=== PATIENT | male | born 1945 | race Hispanic/Latino ===

== ENCOUNTER 2016-10-10 06:58 | Day surgery (SDC) | payer MEDICARE ==
[2015-09-07 10:47] VITALS: PULSE 76
[2016-09-20 10:55] VITALS: BMI 27.9
[2016-10-10 07:58] VITALS: RESP 20
[2016-10-10] MEDS ORDERED: cefTRIAXone (Rocephin) 1 gm Inj ONE (08:02)
[2016-10-10] MEDS ORDERED: Gentamicin 80 mg/2mL Inj. ONE (08:33)
[2016-10-10] MEDS ORDERED: Oxycodone/Acetaminophen 5/325 mg Tab PO PRN (08:45)
[2016-10-10] MEDS ORDERED: Propofol 10 mg/ml Inj (20 ML) ONE (08:50)
[2016-10-10] MEDS ORDERED: Lactated Ringer's 1,000 ML IV SCH (09:15)
--- NOTE | 2016-10-10 10:21 | HP ---
REASON FOR ADMISSION: Workup of elevated PSA. The patient is a very pleasant gentleman. He is 71 years old. He has multiple medical history. He has a history of bypass surgery. He has an elevated PSA. We discussed options including observation , including repeat PSAs, etc. After discussing all the various options, the patient is here today fo r a prostate ultrasound and biopsy. Risks and benefits have been discussed with him at length. He is here now for further plans. PAST MEDICAL AND SURGICAL HISTORY: As listed. A patient of Dr. Montgomery, who the patient also saw in carrier clinic. MEDICATIONS: See the list on the chart. He stopped Plavix a while ago, when he had his "double rupal ias fixed". The remainder are listed on the chart. REVIEW OF SYSTEMS: No weight loss, chest pain, shortness of breath. SOCIAL HISTORY: He is here with his daughter. The remainder of the social history is otherwise unremarkable. PHYSICAL EXAMINATION: GENERAL: A well-nourished male, in no apparent distress. VITAL SIGNS: Within normal limits, included in the chart. LUNGS: Clear. HEART: S1, S2. ABDOMEN: Overall soft, nontender. No flank mass appreciated. GENITALIA: Normal male phallus. DIAGNOSES: Elevated PSA, voiding dysfunction, nocturia. PLAN: An ultrasound of the prostate, ultrasound-guided prostate biopsy, antibiotic prophylaxis and t hen further plans will follow depending on what we find. Risks and benefits discussed with the patient at length and daughter as well. Further plans will follow. He will also be discharged home on antibiotics and analgesics. De Knight MD cc: [id number] TT: 10/10/2016 10:20:22 en
[2016-10-10 10:22] VITALS: TEMP 97.8
--- NOTE | 2016-10-10 10:46 | OP ---
PROCEDURE DATE: 10/10/2016 PREOPERATIVE DIAGNOSES: Elevated PSA, voiding dysfunction, nocturia. POSTOPERATIVE DIAGNOSES: Elevated PSA, voiding dysfunction, nocturia. PROCEDURE: Ultrasound of the prostate and ultrasound-guided prostate biopsy. SURGEON: Dr. De Knight. COMPLICATIONS: There were no complications. PROCEDURES: An ultrasound of the prostate and ultrasound-guided prostate biopsy. There were no comp lications. INDICATIONS: See history and physical for the details. A very pleasant gentleman here for the above procedure. PROCEDURE: After obtaining informed consent, the patient placed on the table, routine monitors place d, timeouts were called to confirm the patient and positioning. We took pictures, transverse and longitudinal views. The monitor for the sizing was not able to prin t up the size, but guessing it was probably about an 80 mL prostate. We did not see any specific hypoechoic lesions. We began our random biopsies in , left base, left mid, left apex, right base, right mid, right apex. There are multiple pictures taken and saved and placed on the chart for further use. There are no specific hypoechoic lesions. We did sextant biopsies, returned them in 2 containers, left and right for nursing reasons, but we ba sically did 2 at each regional spot, left base, left mid and left apex, right base, right mid and rig ht apex with medial and lateral. A total of 12 core biopsies were sent. The patient tolerated procedure well without complication. De Knight MD cc: [id number] TT: 10/10/2016 10:45:43 an
[2016-10-10 10:47] VITALS: BP 137/73; PULSE 67; O2SAT 95
== END 2016-10-10 11:30 | disposition home or self-care (01) ==
LOC: SDS 06:58
PROVIDERS: ATTEND Urology
DX: R97.20 Elevated prostate specific antigen [PSA] (principal); R35.1 Nocturia; N41.9 Inflammatory disease of prostate, unspecified
CPT/HCPCS: 55700; 82948; 88305; J0696; J1580; J2704; J7120

== ENCOUNTER 2017-08-26 17:11 | Observation (INO) | payer MEDICARE ==
[2017-08-26 17:12] VITALS: BMI 27.9
--- NOTE | 2017-08-26 17:34 | ED PDOC ---
Arrival/HPI - General Chief Complaint: Cough, Cold, Congestion Time Seen by Provider: 08/26/17 17:23 Historian: Patient - History of Present Illness Narrative History of Present Illness (Text): 08/26/17 17:31 Catrachito Cai is a 72 year old male, whose past medical history includes diabetes, hypertension, CVA, CABG, and a mitral valve replacement in 2009, who presents to the emergency department complaining of shortness of breatand mild non-productive cough since last night. Patient denies any congestion, URI, fever , chills, chest pain, or any other complaints at this time. Patient endorses that he is not a smoker or a drinker. Time/Duration: 24 hours Symptom Onset: Gradual Symptom Course: Unchanged Activities at Onset: Light Context: Home Associated Symptoms (Text): 08/26/17 18:57 Patient complains of intermittent shortness of breath with a very mild nonproductive cough since last night. No chest pain. No fever or chills. No URI symptoms. No injury or trauma. Patient is concerned as he has had a mitral valve replacement and multivessel CABG. Past Medical History - Provider Review Nursing Documentation Reviewed: Yes - Infectious Disease Hx of Infectious Diseases: None - Tetanus Immunization Tetanus Immunization: Unknown - Cardiac Hx ID: Yes Hx Hypertension: Yes Other/Comment: open heart - Pulmonary Other/Comment: OPEN HEART - Neurological HX Cerebrovascular Accident: Yes - HEENT Hx HEENT Disorder: Yes (USING GLASSES) - Endocrine/Metabolic Hx Endocrine Disorders: Yes Hx Diabetes Mellitus Type 2: Yes - Hematological/Oncological Hx Blood Transfusions: No Hx Blood Transfusion Reaction: No - Musculoskeletal/Rheumatological Hx Musculoskeletal Disorders: No - Gastrointestinal Other/Comment: r and l inguinal hernias pt is sched for sx 09/06/15 - Psychiatric Hx Substance Use: No - Surgical History Hx Open Heart Surgery: Yes - Anesthesia Hx Anesthesia Reactions: No Hx Malignant Hyperthermia: No - Suicidal Assessment Feels Threatened In Home Enviroment: No Family/Social History - Physician Review Nursing Documentation Reviewed: Yes Family/Social History: No Known Family HX Smoking Status: Former Smoker Hx Alcohol Use: No Hx Substance Use: No Hx Substance Use Treatment: No Allergies/Home Meds Allergies/Adverse Reactions: Allergies No Known Allergies Allergy (Verified 08/26/17 17:23) Home Medications: Home Meds Medication Instructions Recorded Confirmed Insulin Glargine,Hum.rec.anlog 60 units SUBCON ACBD 07/22/15 10/10/16 [Lantus] Aspirin [Ecotrin] 81 mg PO DAILY 09/01/15 10/10/16 Atorvastatin [Lipitor] 40 mg PO DAILY 09/01/15 10/10/16 Cholecalciferol (Vitamin D3) 50,000 unit PO Q2XW 09/01/15 10/10/16 [Vitamin D3] Clopidogrel [Plavix] 75 mg PO DAILY 09/01/15 09/20/16 Furosemide [Lasix] 40 mg PO BID 09/01/15 10/10/16 Carvedilol [Coreg] 3.125 mg PO Q12 09/02/15 10/10/16 Digoxin [Digitek] 0.125 mg PO DAILY 09/02/15 10/10/16 Dutasteride/Tamsulosin HCl [Keren 1 cap PO DAILY 09/02/15 10/10/16 0.5-0.4 mg Capsule] Folic Acid 1 mg PO BID 09/02/15 09/06/15 Magnesium Oxide [Mag-Ox] 400 mg PO BID 09/02/15 10/10/16 Sitagliptin Phos/Metformin HCl 1 cap PO BID 09/02/15 10/10/16 [Janumet 50-1,000 mg Tablet] Insulin Aspart, Recombinant 10 unit SC ACTID 09/20/16 10/10/16 [Novolog] Review of Systems - Physician Review All systems were reviewed & negative as marked: Yes - Review of Systems Constitutional: absent: Fatigue, Fevers, Night Sweats Eyes: absent: Vision Changes ENT: absent: Hearing Changes Respiratory: SOB, Cough. absent: Sputum, Wheezing Cardiovascular: absent: Chest Pain, Palpitations, Syncope Gastrointestinal: absent: Abdominal Pain, Nausea, Vomiting Genitourinary Male: absent: Dysuria, Frequency Musculoskeletal: absent: Arthralgias, Back Pain Skin: absent: Rash, Pruritis Neurological: absent: Headache Endocrine: absent: Diaphoresis Hemo/Lymphatic: absent: Adenopathy Psychiatric: absent: Anxiety, Depression Physical Exam Vital Signs Reviewed: Yes Vital Signs Temp Pulse Resp BP Pulse Ox 08/26/17 17:30 71 19 170/98 H 96 08/26/17 17:20 97.5 F L 74 18 187/100 H 96 Blood Pressure: Hypertensive Pulse: Regular Respiratory Rate: Normal Appearance: Positive for: Well-Appearing, Non-Toxic, Comfortable Pain Distress: None Mental Status: Positive for: Alert and Oriented X 3 - Systems Exam Head: Present: Atraumatic, Normocephalic Pupils: Present: PERRL Extroacular Muscles: Present: EOMI Conjunctiva: Present: Normal Ears: Present: NORMAL TM, Normal Canal. No: Erythema Mouth: Present: Moist Mucous Membranes Pharnyx: No: ERYTHEMA, EXUDATE, TONSILS ENLARGED Neck: Present: Normal Range of Motion Respiratory/Chest: Present: Clear to Auscultation, Good Air Exchange, Decreased Breath Sounds. No: Respiratory Distress, Accessory Muscle Use, Wheezes, Rales, Retracting, Rhonchi, Tachypneic, Tender to Palpation Cardiovascular: Present: Regular Rate and Rhythm, Normal S1, S2. No: Murmurs Abdomen: Present: Normal Bowel Sounds. No: Tenderness, Distention, Peritoneal Signs Back: Present: Normal Inspection Upper Extremity: Present: Normal Inspection. No: Cyanosis, Edema Lower Extremity: Present: Normal Inspection. No: Edema Neurological: Present: GCS=15, CN II-XII Intact, Speech Normal, Motor Func Grossly Intact Skin: Present: Warm, Dry, Normal Color. No: Rashes Psychiatric: Present: Alert, Oriented x 3, Normal Insight, Normal Concentration Medical Decision Making ED Course and Treatment: 08/26/17 17:34 Impression: 72 year old male complaining of shortness of breath and mild non-productive cough since last night. Plan: -- EKG -- Chest X-ray -- Labs -- Reassess and disposition Prior Visits: Notes and results from previous visits were reviewed. Patient was last seen in the emergency department on 09/02/15 for dilpopia of both eyes since waking up. Patient was admitted to hospitalist care for further evaluation. Progress Notes: 08/26/17 18:58 EKG shows normal sinus rhythm rate approximately 70 with a primary AV block and nonspecific ST and T-wave changes with no old available for comparison 08/26/17 19:18 Discussed with who will place on telemetry observation and also with the medical research tech. - Lab Interpretations Lab Results: 08/26/17 17:42 08/26/17 17:42 Lab Results 08/26/17 17:42: Influenza Typ A,B (EIA) Negative for flu a/b 08/26/17 17:42: Sodium 143, Potassium 4.5, Chloride 101, Carbon Dioxide 28, Anion Gap 19, BUN 19, Creatinine 1.2, Est GFR ( Amer) > 60, Est GFR (Non- Af Amer) 60, Random Glucose 126 H, Calcium 10.5, Total Bilirubin 0.9, AST 54, ALT 66 H, Alkaline Phosphatase 90, Lactate Dehydrogenase 690, Total Creatine Kinase 84, Troponin I 0.08 D, NT-Pro-B Natriuret Pep 875 H, Total Protein 8.3, Albumin 4.4, Globulin 3.9, Albumin/Globulin Ratio 1.1 08/26/17 17:42: PT 13.0 H, INR 1.14 H, APTT 30.5, D-Dimer, Quantitative 220 08/26/17 17:42: WBC 11.5 H, RBC 5.23, Hgb 15.0, Hct 45.2, MCV 86.4, MCH 28.7, MCHC 33.2, RDW 14.3, Plt Count 228, MPV 10.7, Gran % 72.7 H, Lymph % (Auto) 12.9 L, [place] % (Auto) 11.9 H, Eos % (Auto) 2.3, Baso % (Auto) 0.2, Gran # 8.39 H , Lymph # (Auto) 1.5, [place]kinson # (Auto) 1.4 H, Eos # (Auto) 0.3, Baso # (Auto) 0.02 I have reviewed the lab results: Yes - RAD Interpretation Radiology Orders: 08/26/17 17:31 CHEST PORTABLE [RAD] Stat Chest 1 view shows hardware with no infiltrate or effusion or cardiomegaly. Graphite Pan Drier Tender: ED Physician - Medication Orders Current Medication Orders: Aspirin (Ecotrin) 81 mg PO DAILY PAO Atorvastatin Calcium (Lipitor) 40 mg PO DAILY PAO Carvedilol (Coreg) 3.125 mg PO Q12 PAO Clopidogrel Bisulfate (Plavix) 75 mg PO DAILY PAO Digoxin (Lanoxin) 0.125 mg PO 1400 PAO Ergocalciferol (Drisdol 50,000 Intl Units Cap) 1 cap PO TuFr@1000 PAO Folic Acid (Folic Acid) 1 mg PO BID PAO Insulin Human Lispro (Humalog) 10 units SC AC PAO Losartan Potassium (Cozaar) 25 mg PO DAILY PAO Magnesium Oxide (Mag-Ox) 400 mg PO BID PAO Non-Formulary Medication (Dutasteride/Tamsulosin Hcl [Keren 0.5-0.4 Mg Capsule] ) 1 cap PO DAILY PAO Non-Formulary Medication (Insulin Glargine,Hum.Rec.Anlog [Lantus]) 60 units SUBCON ACBD PAO Potassium Chloride (K-Dur 20 Meq Er Tab) 20 meq PO BRK PAO Discontinued Medications Furosemide (Lasix) 40 mg IVP ONCE ONE Stop: 08/26/17 19:13 - Scribe Statement The provider has reviewed the documentation as recorded by the Raya Elam Provider Scribe Attestation: All medical record entries made by the Scribe were at my direction and personally dictated by me. I have reviewed the chart and agree that the record accurately reflects my personal performance of the history, physical exam, medical decision making, and the department course for this patient. I have also personally directed, reviewed, and agree with the discharge instructions and disposition. Disposition/Present on Arrival - Present on Arrival Any Indicators Present on Arrival: No History of DVT/PE: No History of Uncontrolled Diabetes: No Urinary Catheter: No History of Decub. Ulcer: No History Surgical Site Infection Following: None - Disposition Have Diagnosis and Disposition been Completed?: Yes Diagnosis: Dyspnea, Elevated brain natriuretic peptide (BNP) level, Hypertension, Elevated troponin Disposition: HOSPITALIZED Disposition Time: 19:19 Patient Plan: Observation, Telemetry Condition: GOOD Referrals: Ortiz Terry MD [Primary Care Provider] - Follow up with primary Forms: [employer] ([place])
[2017-08-26 18:12] LABS: BASO # 0.02 K/mm3 (0.0-2.0); BASO % 0.2 % (0.0-3.0); EOS # 0.3 (0.0-0.7); EOS % 2.3 % (1.5-5.0); GRAN # 8.39 (1.4-6.5); GRAN % 72.7 % (50.0-68.0); LYMPH # 1.5 (1.2-3.4); LYMPH % 12.9 % (22.0-35.0); MEAN CELL VOLUME 86.4 fl (80.0-105.0); MEAN CORPUSCULAR HEMOGLOBIN 28.7 pg (25.0-35.0); MEAN CORPUSCULAR HGB CONC 33.2 g/dl (31.0-37.0); MEAN PLATELET VOLUME 10.7 fl (7.0-11.0); MONO # 1.4 (0.1-0.6); MONO % 11.9 % (1.0-6.0); RBC 5.23 10^6/uL (3.5-6.1); RED CELL DISTRIBUTION WIDTH 14.3 % (11.5-14.5); WHITE BLOOD COUNT 11.5 10^3/ul (4.5-11.0)
[2017-08-26 18:14] LABS: ALB/GLOB RATIO 1.1 (1.1-1.8); ALBUMIN 4.4 g/dL (3.0-4.8); ALT/SGPT 66 U/L (7-56); AST/SGOT 54 U/L (17-59); BLOOD UREA NITROGEN 19 mg/dL (7-21); CALCIUM 10.5 mg/dL (8.4-10.5); GFR AFRICAN-AMERICAN > 60; GFR NON-AFRICAN AMERICAN 60
[2017-08-26 18:21] LABS: INR 1.14 (0.93-1.08); PARTIAL THROMBOPLASTIN TIME 30.5 Seconds (25.1-36.5)
[2017-08-26 18:24] LABS: B-TYPE NATRIURETIC PEPTIDE 875 pg/mL (0-450); TROPONIN I 0.08 ng/mL
--- NOTE | 2017-08-26 19:03 | RAD ---
HISTORY: Shortness of breath. COMPARISON: 09/19/2016. FINDINGS: LUNGS: No active pulmonary disease. PLEURA: No significant pleural effusion identified, no pneumothorax apparent. CARDIOVASCULAR: No radiographic findings to suggest acute or significant cardiovascular disease. Incidental Finding(s): Postoperative changes related to sternotomy. Mitral valve prosthesis again identified. OSSEOUS STRUCTURES: No significant abnormalities. VISUALIZED UPPER ABDOMEN: Normal. OTHER FINDINGS: None. IMPRESSION: No active disease. No significant interval change compared to the prior examination(s).
[2017-08-26] MEDS: Magnesium Oxide 400 mg Tab UD PO SCH (22:37)
--- NOTE | 2017-08-26 23:08 | CARD ---
APPROVED REPORT EKG Measurement Heart [id number] <Conclusion> Sinus rhythm with 1st degree AV block Nonspecific T wave abnormality Abnormal ECG
[2017-08-26] MEDS: Insulin Detemir 100 units/ml Vial (Levemir) SC SCH (23:18)
[2017-08-27 01:22] LABS: TROPONIN I 0.08 ng/mL
[2017-08-27 03:45] LABS: ALB/GLOB RATIO 1.1 (1.1-1.8); BILIRUBIN,DIRECT 0.4 mg/dL (0.0-0.4)
[2017-08-27 03:52] LABS: BASO # 0.02 K/mm3 (0.0-2.0); BASO % 0.3 % (0.0-3.0); EOS # 0.3 (0.0-0.7); EOS % 4.1 % (1.5-5.0); GRAN # 4.81 (1.4-6.5); GRAN % 60.4 % (50.0-68.0); HEMOGLOBIN 14.4 g/dL (14.0-18.0); LYMPH # 1.8 (1.2-3.4); LYMPH % 22.8 % (22.0-35.0); MEAN CELL VOLUME 86.4 fl (80.0-105.0); MEAN CORPUSCULAR HEMOGLOBIN 28.4 pg (25.0-35.0); MEAN CORPUSCULAR HGB CONC 32.9 g/dl (31.0-37.0); MEAN PLATELET VOLUME 10.5 fl (7.0-11.0); MONO % 12.4 % (1.0-6.0); RBC 5.07 10^6/uL (3.5-6.1); RED CELL DISTRIBUTION WIDTH 14.4 % (11.5-14.5)
[2017-08-27 03:56] LABS: TROPONIN I 0.08 ng/mL
[2017-08-27] MEDS: Pantoprazole 20 mg EC Tab PO SCH ×2 (05:15→17:00)
[2017-08-27] MEDS ORDERED: Insulin Lispro 1 UNITS/0.01 ML SC SCH (07:30)
[2017-08-27] MEDS ORDERED: Potassium Chloride 20 mEq ER Tab PO SCH (08:00)
--- NOTE | 2017-08-27 08:13 | HP ---
HISTORY OF PRESENT ILLNESS: The patient is a 72-year-old male, who presented to the [facility] Emergency Room complaining of chest congestion, shortness of breath, dyspnea on exertion. The patient came to the emergency room as a walk-in. According to the triage note, the patient presented with the above complaint, but according to the patient's ER physician evaluation, the patient complains of shortness of breath, dyspnea on exertion since last night with some cough. The patient denies any chest pain. REVIEW OF SYSTEMS: A 13-system review was done, pertinent positive and negative dictated above. CODE STATUS: Full code. LIVING WILL ADVANCE DIRECTIVE: None. ALLERGIES: None. Height is 5 feet 9 inches. Weight is 210. BMI is 31. HOME MEDICATIONS: The correct home medications as per the office records. 1. Allopurinol 100 mg twice a day. 2. Coreg 3.125 twice a day. 3. Cozaar 100 mg daily. 4. Digoxin 125 mcg daily. 5. Drisdol 50,000 units 2 to 3 times a week. 6. Ecotrin 81 mg daily. 7. Flomax 0.4 mg daily. 8. Folic acid 1 mg daily. 9. Humalog mix 75/25, 15 units with breakfast, 15 units with lunch, 15 units with supper. 10. The patient is on Janumet twice a day. 11. Lantus Solostar 60 units at breakfast and 60 units at supper. 12. Lasix 40 mg twice a day. 13. Lipitor 40 mg daily. 14. Magnesium oxide 400 mg twice a day. 15. Plavix 75 mg daily. 16. Proscar 5 mg daily. 17. Humalog mix 75/25, 18 units at breakfast, 18 units at lunch and 18 units at supper. Humalog Mix 75/25 dose is ranging between 15 to18 units with breakfast, lunch and supper. SOCIAL HISTORY: Positive for former smoking. Denies alcohol and drug use. 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 FAMILY HISTORY: Positive for diabetes. PAST MEDICAL AND SURGICAL HISTORY: History of insulin-requiring diabetes mellitus, history of congestive heart failure, history of coronary artery bypass graft, history of coronary artery disease, history of prostatic hypertrophy, history of elevated PSA, history of hypertension, history of insulin-requiring diabetes mellitus, history of hypovitaminosis D, history of hyperuricemia, history of hypomagnesemia, history of poor compliance. Significant for uncontrolled diabetes mellitus with hemoglobin A1c of 10 and 13, history of hypertriglyceridemia, hypercholesteremia, dyslipidemia, history of bilateral internal carotid artery 20%-40% stenosis, history of chronic microvascular ischemic disease of the brain, history of right cerebellar infarct, history of right lower lobe and left lower lobe atelectasis, history of mitral valve replacement, history of cholelithiasis, asymptomatic, history of history of renal cyst, history of arteriosclerotic vascular disease, history of diverticulosis of the colon, history of questionable bladder outlet obstruction versus cystitis, history of prostatomegaly, history of bilateral inguinal hernia, history of poor compliance, history of abnormal stress test in July 2015 with diffuse LV hypokinesis and paradoxical septal wall motion with ejection fraction of 38%, history of prostatic biopsy with benign prostatic tissue. Last echocardiogram done in August 2015 showing ejection fraction of 56% and concentric left ventricle hypertrophy, history of moderately dilated left atrium, history of aortic valve sclerosis with mild aortic regurgitation, history of bioprosthetic mitral valve with mild mitral valve stenosis, history of mild tricuspid regurgitation, history of concentric left ventricle hypertrophy, history of septal hypokinesis, history of bilateral inguinal herniorrhaphy, history of right inguinal incarcerated hernia, history of hyperkalemia, history of mitral valve prosthesis, history of ischemic cardiomyopathy, history of former nicotine dependence, history of myocardial infarction, history of bibasilar atelectasis, history of cervical spine degenerative disc disease, history of left parietal lobe infarct and encephalomalacia, history of old inferior right cerebellar infarct with encephalomalacia, history of cerebral cortical atrophy of the brain, history of cervical spine disc disease, history of dietary noncompliance, history of multivessel coronary artery disease, history of ischemic cardiomyopathy, history of community-acquired pneumonia, history of microangiopathic disease of the brain, 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 PHYSICAL EXAMINATION: The patient is seen in stretcher #7 in the emergency room. VITAL SIGNS: T-max is 97.5; heart rate 71, 66, 74; initial blood pressure 187/100, 170/98, 140/66; respiration 18-20, O2 sat 96%. GENERAL: Patient is seen lying in the stretcher. HEENT: Head examination normocephalic, atraumatic. [place] conjunctivae. Anicteric sclerae. No oropharyngeal lesion. NECK: Questionable jugular venous distention. CHEST: Shows median sternotomy surgical scar. LUNGS: Shows positive crepitus, crackles, rhonchi bilaterally. CARDIOVASCULAR: S1, S2. Positive Systolic murmur at left sternal border, right second intercostal space. ABDOMEN: Soft. Positive bowel sounds. No hepatosplenomegaly noted. No guarding, no rigidity, no rebound tenderness. No costovertebral angle tenderness. No right and left upper quadrant tenderness noted. GENITALIA: Male. RECTAL: Deferred. EXTREMITIES: Trace swelling of the lower extremity. MUSCULOSKELETAL: Body mass index of 31. NEUROLOGIC: Cranial nerves II-XII limited. Gait examination not tested. Neurologic examination without any gross deficit. DIAGNOSTICS: WBC 11.5, hemoglobin and hematocrit 15 and 45.2, platelet 228, granulocytes 73% segs. PT/PTT 13 and 30.5, D-dimer is 220. Sodium 143, potassium 4.5, chloride 101, CO2 of 28, anion gap 19, BUN 19, creatinine 1.2, GFR greater than 60, glucose 126, calcium 10.5. AST 66. Troponin is 0.28. BNP is 875. Influenza serologies are negative. Chest x-ray was reviewed, which shows coronary artery bypass graft. EKG was done in the emergency room, which shows sinus rhythm, first-degree AV block. Intraventricular conduction delay versus incomplete left bundle-branch block. The patient was seen in the emergency room by the ER physician. The patient was treated in the ER by Dr. Cr. Patient was given Lasix 40 mg IV x1 dose with patient's improvement of symptoms of shortness of breath and blood pressure coming down to 143/66. The patient at this point was advised to be admitted to [facility] for further management. IMPRESSION AND PLAN: A 72-year-old male with complaints of shortness of breath, dyspnea on exertion, cough. 1. Acute recurrent systolic congestive heart failure with elevated BNP. 2. Uncontrolled hypertension. 3. Leukocytosis with granulocytosis. 4. Hyperglycemia. 5. Insulin-requiring diabetes mellitus. 6. Transaminitis. 7. Indeterminate troponin of 0.08. 8. History of coronary artery bypass graft, coronary artery disease. 9. Hypertension. 10. History of poor compliance. 11. Status post mitral valve replacement and prosthesis. 12. First-degree atrioventricular block. 13. Nonspecific ST-T changes. 14. Incomplete left bundle-branch block versus intraventricular conduction delay. 15. Shortness of breath and dyspnea on exertion, questionable anginal equivalent. 16. Hypovitaminosis D. 17. History of prostatic hypertrophy. 18. History of systolic congestive heart failure and history of ischemic cardiomyopathy. 19. History of hypokalemia. 20. Dyslipidemia. 21. Hypomagnesemia. PLAN: At this time, the patient will be admitted to telemetry. At present, the patient's further management will be dependent upon the patient's clinical condition, hemodynamic status and as per the patient's response to therapeutic intervention as per the patient's diagnostic test results. Repeat chemistries, digoxin level, lipid panel, hemoglobin A1c, LFTs, repeat troponin, CBC ordered. Cardiology consultation ordered. The patient's Coreg will be considered to be held at this time because of high-grade first-degree AV block and intraventricular conduction delay and possible incomplete left bundle-branch block. The patient will be resumed on Cozaar 25 mg daily, Drisdol 50,000 weekly, Ecotrin 81 mg daily, Flomax 0.4 mg daily, folic acid 1 g daily, Humalog 10 units 3 times a day with meals because the patient's hospital pharmacy formerly does not have Humalog Mix 75/25. The patient will be put on Humalog sliding scale coverage low dose, K-Dur 20 mEq daily, digoxin 0.125 daily, Lasix 40 mg IV q.12, Levemir 60 units. The patient is at home which is Lantus 60 units twice a day. That will be substituted with Levemir 60 units twice a day. Lipitor 40 mg daily, Lovenox 40 mg subcu daily, magnesium oxide 400 twice a day, Plavix 75 mg daily. The patient is started on GI, DVT prophylaxis with Protonix and Lovenox. Repeat EKG ordered. Echo was ordered. The patient will be on consistent carbohydrate diet. Out of bed to chair. The patient's condition, diagnosis, need for hospitalization, need for further diagnostic therapeutic intervention discussed and explained to the patient at length and all questions concerned answered, which he acknowledged to understand. The patient was again reinforced about compliance with medication, diet, etc., at length and all questions concerned answered, which he acknowledged and understood. At present, the patient was seen in stretcher #7 in the emergency room. The patient is awaiting for a telemetry bed.. The patient's further management as discussed above, which has been explained to the patient. Dictated and electronically signed, not read. Ortiz Terry MD
[2017-08-27] MEDS: Insulin Detemir 100 units/ml Vial (Levemir) SC SCH ×2 (08:24→17:30)
[2017-08-27] MEDS: Insulin Lispro (humaLOG) LOW Coverage SC SCH ×3 (09:13→17:30)
[2017-08-27] MEDS: Insulin Lispro 1 UNITS/0.01 ML SC SCH ×3 (09:14→18:11)
[2017-08-27] MEDS ORDERED: Ergocalciferol 50,000 Intl Units Cap PO SCH (10:00)
[2017-08-27] MEDS ORDERED: TAMSULOSIN HCL PO SCH (10:00)
[2017-08-27] MEDS ORDERED: Enoxaparin 40 mg Syringe SC SCH (10:00)
[2017-08-27] MEDS ORDERED: DUTASTERIDE PO SCH (10:00)
[2017-08-27] MEDS: Magnesium Oxide 400 mg Tab UD PO SCH ×2 (11:32→17:59)
[2017-08-27 12:17] VITALS: RESP 18; O2SAT 95
--- NOTE | 2017-08-27 12:24 | CARD ---
APPROVED REPORT EKG Measurement Heart [id number] <Conclusion> Sinus rhythm with sinus arrhythmia with 1st degree AV block Nonspecific intraventricular block Cannot rule out Inferior infarct, age undetermined Abnormal ECG
[2017-08-27] MEDS ORDERED: Digoxin 125 mcg (0.125 mg) Tab PO SCH (14:00)
[2017-08-27 14:43] VITALS: PULSE 66
[2017-08-27 18:02] VITALS: BP 149/84
--- NOTE | 2017-08-27 18:31 | CARD ---
APPROVED REPORT EXAM: Two-dimensional and M-mode echocardiogram with Doppler and color Doppler. INDICATION Cardiac Disease: CAD Congestive Heart Failure MVR 2D DIMENSIONS Left Atrium (2D)4.7 (1.6-4.0cm)IVSd1.8 (0.7-1.1cm) LVDd5.5 (3.9-5.9cm)PWd1.6 (0.7-1.1cm) LVEF (%)30.0 (>50%) M-Mode DIMENSIONS Aortic Root4.10 (2.2-3.7cm)Aortic Cusp Exc.1.90 (1.5-2.0cm) Aortic Valve AoV Peak Sxixhbcd965.0cm/Juancarlos Peak GR.7mmHg Mitral Valve MV E Kcgeshfg981.0cm/sMV A Qyzpzmib756.0cm/sMV [id number] E/A ratio0.8MVA (PHT)1.83cm2 TDI Lateral E' Peak V7.91cm/sMedial E' Peak V4.68cm/sE/Lateral E'16.3 E/Medial E'27.6 Pulmonary Valve PV Peak Vmtuozhn81.8cm/sPV Peak Grad.3mmHg Tricuspid Valve TR Peak Dhmedlre059iy/sRAP [id number] Peak Gr.33mmHg [id number] LEFT VENTRICLE The left ventricle is normal size. There is moderate concentric left ventricular hypertrophy. The systolic function is severely impaired. Sever Apical hypokinesis Transmitral Doppler flow pattern is Grade I-abnormal relaxation pattern. RIGHT VENTRICLE The right ventricle is normal size. There is normal right ventricular wall thickness. The right ventricular systolic function is normal. ATRIA The left atrium is moderately dilated. The right atrium is moderately dilated. AORTIC VALVE The aortic valve is moderately sclerotic. There is mild aortic regurgitation. MITRAL VALVE Mitral regurgitation is mild. There is a bioprosthetic mitral valve. TRICUSPID VALVE There is mild tricuspid regurgitation. There is mild pulmonary hypertension. GREAT VESSELS The aortic root is mildly to moderately enlarged. <Conclusion> The left ventricle is normal size. There is moderate concentric left ventricular hypertrophy. The systolic function is severely impaired. Sever Apical hypokinesis There is mild aortic regurgitation. There is a bioprosthetic mitral valve.MVA estimated at 1.8 cm2 Mitral regurgitation is mild. There is mild tricuspid regurgitation. There is mild pulmonary hypertension.
[2017-08-27 19:55] VITALS: PULSE 68; TEMP 97.8
--- NOTE | 2017-08-28 02:49 | CON ---
DATE: 08/27/2017 CARDIOLOGY CONSULTATION HISTORY OF PRESENT ILLNESS: The patient is a 72-year-old male who presented with several days of shortness of breath. The patient's past medical history is notable for history of coronary artery bypass surgery with a documented ischemic dilated cardiomyopathy of approximately 30 to 35%. He suffers from diabetes mellitus, hypertension, and hypercholesterolemia. In addition, the patient had a mitral valve repair versus replacement in the past. He denies chest pain. After IV Lasix from yesterday until today, his symptoms are completely resolved. He is able to ambulate without symptoms. No chest pain noted. SOCIAL HISTORY: The patient does not smoke. REVIEW OF SYSTEMS: Fourteen-point review of systems was reviewed in detail. Patient is completely asymptomatic on exertion. He was able walk three laps around the nurse's station without issues. PHYSICAL EXAMINATION: VITAL SIGNS: Blood pressure is 163/92, the heart rate is in the 60s. NECK: Negative JVD. LUNGS: Clear to auscultation. HEART: Reveals S1, S2 with a 2/6 systolic ejection murmur. EXTREMITIES: Without edema. DIAGNOSTIC STUDIES: EKG shows no acute changes. LABORATORY DATA: Troponins of 0.08 x3, which are not significantly changed from his previous troponins going back to 2012. BUN and creatinine is 1.6. Hemoglobin is 14.1. IMPRESSION: 1. Acute systolic congestive heart failure, which is now resolved. 2. Ischemic dilated cardiomyopathy. 3. Stable angina. 4. History of coronary artery bypass surgery. 5. History of mitral valve repair/replacement. 6. Diabetes mellitus. 7. Hypertension. 8. Hypercholesterolemia. PLAN: Given these findings, the patient is feeling well and wants to go home. I have discussed with the patient about his need for low-salt diet. His diet right now is marked with excessive salt, which may have contributed to the CHF symptoms. From a cardiac perspective, the patient can be discharged. We will arrange for an outpatient stress test, which the patient is agreeable to. Fidel Montgomery MD
--- NOTE | 2017-08-28 19:35 | DS ---
HISTORY OF PRESENT ILLNESS: The patient was seen in room 374, bed 1. Patient was also seen in the echo room, getting echocardiogram done. REVIEW OF SYSTEMS: Patient's 13 system review was done. The patient denies any chest congestion. Denies constipation. Denies shortness of breath. Denies dyspnea on exertion. Denies nausea, denies chest pain.. The patient is awaiting a cardiology evaluation. PHYSICAL EXAMINATION: Overnight, nurse's notes were reviewed. VITAL SIGNS: T-max 97.8. Telemetry shows sinus rhythm, heart rate of 60s and 70 beats per minute. Blood pressure initially 187/100, 170/98, 143/66, 153/80, 129/74, 144/84, 163/92, 149/84, 149/84; respiration 18, O2 sat 95%-96%. HEENT: Head: Normocephalic, atraumatic. Shows pink conjunctivae. Anicteric sclerae. No oropharyngeal lesion. NECK: No neck rigidity. CHEST: Shows median sternotomy surgical scar. LUNGS: Show decrease in crackles and rhonchi, improved air entry. CARDIOVASCULAR: S1, S2, regular rhythm. Questionable soft systolic murmur in left sternal border, right second intercostal space. ABDOMEN: Soft. No palpable hepatosplenomegaly noted. No guarding. No rigidity. GENITALIA: Male. RECTAL: . MUSCULOSKELETAL: Shows a body mass index of 31. Cranial nerves II-XII intact. Gait examination is independent. VASCULAR: Palpable pulses. Plantars are downward. DTRs are 2+. DIAGNOSTIC DATA: 08/27/2017, WBC count 8.0, hemoglobin/hematocrit 14.4 and 43.8, platelet 217, granulocytes are 60% down from 73%. PT/PTT is normal. Sodium 145, potassium 4.1, chloride 100, CO2 of 32, anion gap 16, BUN 21, creatinine 1.6, GFR 52. Fingerstick blood sugar 117, 186, 187, 160. Hemoglobin A1c 8.8, which is elevated. Calcium 10.0, magnesium 2.0, ALT is 57. Troponin three sets consistently 0.08. Triglyceride 295, cholesterol 157, LDL 68, HDL 50. Digoxin 0.5. Influenza titer negative. The patient's chest x-ray, echocardiogram and EKG results, all reviewed. IMPRESSION AND PLAN: 1. Possible mild acute congestive heart failure with elevated BNP with symptoms of shortness of breath, dyspnea on exertion and congestion. 2. Acute recurrent systolic congestive heart failure with elevated BNP. 3. Uncontrolled hypertension. 4. Leukocytosis with granulocytosis (resolved). 5. Acute kidney injury with underlying chronic kidney disease stage 1. 6. Uncontrolled insulin-requiring diabetes mellitus with hyperglycemia and hemoglobin A1c of 8.8. 7. Transaminitis. 8. Indeterminate troponin of 0.08. 9. Hypertriglyceridemia. 10. Hypercholesteremia. 11. History of coronary artery disease, coronary artery bypass graft, mitral valve replacement and prosthesis. 12. Left ventricular ejection fraction of 30%. 13. Dilated ischemic cardiomyopathy. 14. Concentric left ventricular hypertrophy. 15. Severely impaired left ventricular systolic function with severe apical hypokinesis and grade 1 abnormal relaxation pattern with left ventricular ejection fraction of 30%. 16. Moderately dilated left and right atrium. 17. Moderately sclerotic aortic valve with mild aortic regurgitation. 18. Mild mitral regurgitation with bioprosthetic mitral valve. 19. Mild tricuspid regurgitation with pulmonary arterial hypertension with right ventricular systolic pressure of 43 mmHg. 20. Moderately enlarged aortic root. 21. History of poor compliance and noncompliance. 22. First degree atrioventricular block. 23. Age indeterminate inferior infarct. 24. Intraventricular conduction block versus incomplete left bundle-branch block. 25. History of prostatic hypertrophy. 26. Insulin-requiring diabetes mellitus. 27. Systolic congestive heart failure. 28. Ischemic dilated cardiomyopathy. 29. Hypomagnesemia. 30. Hypovitaminosis D. 31. Hyperuricemia. PLAN: At this time, the patient was cleared by Dr. Fidel Montgomery from Cardiology for discharge with outpatient stress test on 08/29/2017. The patient is going to be discharged home on resumption of all home medications including allopurinol 100 mg twice a day, Ecotrin 81 mg daily, Coreg will be adjusted down to 3.125 mg once or twice a day, vitamin D3 50,000 units weekly, Plavix 75 mg daily, digoxin 0.125 daily, Flomax 0.4 mg daily, Proscar 5 mg daily, folic acid 1 mg twice a day, Lasix 40 mg twice a day, Lantus 60 units breakfast and dinner, Humalog 3 times a day, Cozaar 25 mg daily, magnesium oxide 400 mg twice a day, Janumet mg twice a day. Patient is discharged home to be followed up with Dr. Terry on 08/28/[address] Montgomery on 08/29/2017 at 06:30 a.m. for outpatient stress test. The patient was given a copy of moderate carbohydrate, heart healthy, low-salt, low-cholesterol diet. During this hospitalization, the patient was extensively explained about the details of his medical condition, details of his diagnosis, details of his test results. The patient was advised strict compliance. The patient was advised close followup with all. The patient was extensively explained about his diagnosis, test results, recommendation by me and the medical office administrator and Dr. Montgomery. Time spent in the entire discharge process 45 minutes. Dictated and electronically signed, not read. Ortiz Terry MD
== END 2017-08-27 20:23 | disposition home or self-care (01) ==
LOC: ED 17:11 → ERH 19:15 → 3RSO 23:56
PROVIDERS: ADMIT Internal Medicine; ATTEND Internal Medicine
DX: I13.0 Hypertensive heart and chronic kidney disease with heart failure and stage 1 through stage 4 chronic kidney disease, or unspecified chronic kidney disease (principal); I50.21 Acute systolic (congestive) heart failure; N18.1 Chronic kidney disease, stage 1; E11.22 Type 2 diabetes mellitus with diabetic chronic kidney disease; E11.65 Type 2 diabetes mellitus with hyperglycemia; E78.2 Mixed hyperlipidemia; I25.118 Atherosclerotic heart disease of native coronary artery with other forms of angina pectoris; I25.5 Ischemic cardiomyopathy; I42.0 Dilated cardiomyopathy; I27.21 Secondary pulmonary arterial hypertension; I08.3 Combined rheumatic disorders of mitral, aortic and tricuspid valves; I44.0 Atrioventricular block, first degree; N40.0 Benign prostatic hyperplasia without lower urinary tract symptoms; E55.9 Vitamin D deficiency, unspecified; E79.0 Hyperuricemia without signs of inflammatory arthritis and tophaceous disease; Z95.3 Presence of xenogenic heart valve; Z95.1 Presence of aortocoronary bypass graft; Z79.4 Long term (current) use of insulin
CPT/HCPCS: 36415; 71045; 80053; 80061; 80162; 82248; 82550; 82948; 83036; 83615; 83735; 83880; 84484; 85025; 85378; 85610; 85730; 87804; 93005; 93306; 96374; 99284; G0378; J1650; J1940

== ENCOUNTER 2017-09-09 07:13 | Day surgery (SDC) | payer MEDICARE ==
[2017-09-06 13:52] VITALS: BMI 27.5
[2017-09-09 07:55] LABS: BASO # 0.03 K/mm3 (0.0-2.0); BASO % 0.4 % (0.0-3.0); EOS # 0.3 (0.0-0.7); EOS % 3.7 % (1.5-5.0); GRAN # 5.3 (1.4-6.5); GRAN % 62.9 % (50.0-68.0); HEMOGLOBIN 14.6 g/dL (14.0-18.0); LYMPH # 1.8 (1.2-3.4); LYMPH % 20.9 % (22.0-35.0); MEAN CELL VOLUME 85.9 fl (80.0-105.0); MEAN CORPUSCULAR HEMOGLOBIN 28.1 pg (25.0-35.0); MEAN CORPUSCULAR HGB CONC 32.7 g/dl (31.0-37.0); MEAN PLATELET VOLUME 10.1 fl (7.0-11.0); MONO % 12.1 % (1.0-6.0); RBC 5.19 10^6/uL (3.5-6.1); RED CELL DISTRIBUTION WIDTH 13.7 % (11.5-14.5); WHITE BLOOD COUNT 8.4 10^3/ul (4.5-11.0)
[2017-09-09] MEDS ORDERED: Midazolam 2 MG/2 ML VIAL ONE ×2 (08:01→10:02)
[2017-09-09] MEDS ORDERED: Iodixanol 320 MG/ML 200 ML BOTTLE IV ONE (08:01)
[2017-09-09] MEDS ORDERED: Lidocaine 2% Inj (20ml) ONE (08:01)
[2017-09-09] MEDS ORDERED: HEPARIN SODIUM/NS 2,000 ML IV ONE (08:02)
[2017-09-09 08:04] LABS: INR 1.21 (0.93-1.08); PARTIAL THROMBOPLASTIN TIME 32.2 Seconds (25.1-36.5)
[2017-09-09 08:22] LABS: CALCIUM 9.6 mg/dL (8.4-10.5)
[2017-09-09] MEDS ORDERED: Sodium Chloride 0.9% 1,000 ML IV SCH (10:30)
[2017-09-09 10:38] VITALS: RESP 20; TEMP 98.2
[2017-09-09 11:37] VITALS: O2SAT 97
[2017-09-09 13:28] VITALS: BP 160/83; PULSE 59
--- NOTE | 2017-09-09 19:03 | CARDCATH ---
PROCEDURE DATE: 09/09/2017 HISTORY: The patient is a 72-year-old male who presents with chest pain and an abnormal stress test. The patient is status post coronary artery bypass surgery in the past. Because of this, cardiac catheterization was recommended. PROCEDURE: Left heart catheterization with coronary arteriography, left ventriculogram, NOEL angiogram, and saphenous vein graft angiogram were performed. There were no complications. I performed moderate sedation, which included the presence of an independent trained observer that assisted in monitoring the patient's level of consciousness and physiologic status. After administration of Versed and fentanyl, my intra-service time was 15 minutes. The right femoral artery was cannulated with a 6-Polish sheath. There were no complications. The findings on catheterization revealed a chronically occluded RCA. Left main artery was unremarkable. The LAD revealed a subtotally occluded 95% proximal LAD stenoses. Circumflex artery revealed a 90% stenosis in the first obtuse marginal branch in its proximal portion. The rest of the circumflex system was free of significant disease. The NOEL to the LAD was found to be patent found to be patent and provided good antegrade flow to the mid and distal LAD. The saphenous vein graft to the obtuse marginal branch found to be patent and provided good antegrade flow to the obtuse marginal branch. The saphenous vein graft to the RCA was found to be patent and provided good antegrade flow to the mid and distal vessel. Left ventriculogram was performed in the SEN projection. In the SEN projection, the left ventricle was globally hypokinetic with an EF of approximately 35%-40%. There was no mitral regurgitation. The patient tolerated the procedure well. Angio-Seal was used to close the femoral artery site. In summary, the procedure revealed: 1. Triple-vessel CAD. 2. Patent NOEL to the LAD. 3. Patent SVG to the obtuse marginal branch. 4. Patent SVG to the to the RCA. 5. LV function was visualized in the SEN projection. The EF was approximately 35%-40%. There was no mitral regurgitation. Given these findings, the patient's anatomy is unchanged from 2013 catheterization. PLAN: For an aggressive cardiac risk reduction program. Fidel Montgomery MD
--- NOTE | 2017-09-09 21:29 | CARD ---
APPROVED REPORT EKG Measurement Heart [id number] <Conclusion> Sinus rhythm with 1st degree AV block with premature atrial complexes in a pattern of bigeminy Incomplete left bundle branch block Nonspecific T wave abnormality Abnormal ECG
== END 2017-09-09 16:30 | disposition home or self-care (01) ==
LOC: CATH 07:13
PROVIDERS: ATTEND Internal Medicine Cardiovascular Disease
DX: I25.10 Atherosclerotic heart disease of native coronary artery without angina pectoris (principal); I25.82 Chronic total occlusion of coronary artery; I11.0 Hypertensive heart disease with heart failure; I50.9 Heart failure, unspecified; E78.5 Hyperlipidemia, unspecified; E11.9 Type 2 diabetes mellitus without complications; Z79.4 Long term (current) use of insulin; Z95.1 Presence of aortocoronary bypass graft
CPT/HCPCS: 36415; 80048; 85025; 85610; 85730; 86850; 86900; 93005; 93458; 99152; 99153; C1760; C1769; C1887 ×2; C2629; J1644; J2250; J3010; J7030; J7040

== ENCOUNTER 2018-07-13 20:11 | Inpatient (IN) | payer MEDICARE ==
[2018-07-13 20:11] VITALS: BMI 27.5
[2018-07-13] MEDS ORDERED: Dextrose 50% SYRINGE Inj (50 ml) ONE (20:44)
--- NOTE | 2018-07-13 21:02 | ED PDOC ---
Arrival/HPI - General Chief Complaint: Shortness Of Breath Time Seen by Provider: 07/13/18 20:38 Historian: Patient - History of Present Illness Narrative History of Present Illness (Text): A 72 year old male, whose past medical history includes diabetes, hypertension, CVA, CABG, and a mitral valve replacement in 2009, presents to the emergency department with niece for complaint of fever and low blood sugar. Patient notes that he had a fever of 104.5 today and his blood sugar dropped. He reports taking all of his insulin medications today, but has not eaten enough throughout the day, as per the patent's niece. Patient also reports "pain in his ribcage" when he breathes since this morning. Patient's niece notes that the patient's PMD told him he had fluid in his lungs 2 weeks ago. She also reports patient had vomiting and diarrhea yesterday. No dark or bloody stool. No bilious or bloody vomit. No trauma or fall. The patient denies any chills, shortness of breath, abdominal pain, nausea, urinary symptoms, back pain, neck pain, headache, dizziness, or any other complaints. PMD: Dr. Terry Loss Prevention Lead: Dr. Montgomery Time/Duration: Other (This morning) Symptom Onset: Sudden Symptom Course: Unchanged Activities at Onset: Rest, Light Context: Home Past Medical History - Provider Review Nursing Documentation Reviewed: Yes - Infectious Disease Hx of Infectious Diseases: None - Tetanus Immunization Tetanus Immunization: Unknown - Cardiac Hx Congestive Heart Failure: Yes Hx Hypertension: Yes Hx Pacemaker: No - Pulmonary Other/Comment: OPEN HEART - Neurological Hx Paralysis: No - HEENT Hx HEENT Disorder: Yes (USING GLASSES) - Endocrine/Metabolic Hx Endocrine Disorders: Yes Hx Diabetes Mellitus Type 2: Yes - Hematological/Oncological Hx Blood Transfusions: No Hx Blood Transfusion Reaction: No - Musculoskeletal/Rheumatological Hx Musculoskeletal Disorders: No - Gastrointestinal Hx Gastrointestinal Disorders: Yes Other/Comment: r and l inguinal hernias - Psychiatric Hx Emotional Abuse: No Hx Physical Abuse: No Hx Substance Use: No - Surgical History Hx Coronary Artery Bypass Graft: Yes - Anesthesia Hx Anesthesia Reactions: No Hx Malignant Hyperthermia: No - Suicidal Assessment Feels Threatened In Home Enviroment: No Family/Social History - Physician Review Nursing Documentation Reviewed: Yes Family/Social History: No Known Family HX Smoking Status: Former Smoker Hx Alcohol Use: No Hx Substance Use: No Hx Substance Use Treatment: No Allergies/Home Meds Allergies/Adverse Reactions: Allergies No Known Allergies Allergy (Verified 09/06/17 13:51) Home Medications: Home Meds Medication Instructions Recorded Confirmed Cholecalciferol (Vitamin D3) 50,000 unit PO Q1XW 09/01/15 07/13/18 [Vitamin D3] Furosemide [Lasix] 40 mg PO BID 09/01/15 07/13/18 Carvedilol [Coreg] 6.25 mg PO BID 09/02/15 07/13/18 Digoxin [Digitek] 0.125 mg PO QAM 09/02/15 07/13/18 Magnesium Oxide [Mag-Ox] 400 mg PO BID 09/02/15 07/13/18 Allopurinol [Zyloprim] 100 mg PO BID 08/29/17 07/13/18 Atorvastatin [Lipitor] 40 mg PO DAILY 08/29/17 07/13/18 Insulin Glargine,Hum.rec.anlog 60 unit SQ ACBD 08/29/17 07/13/18 [Lantus Solostar] Insulin Lispro Mix 75/25 [humalog 25 units SC AC 08/29/17 07/13/18 Mix 75/25 75 U/Ml-25 U/Ml 10 Ml] Losartan [Cozaar] 100 mg PO QAM 08/29/17 07/13/18 Finasteride [Proscar] 5 mg PO QAM 09/06/17 07/13/18 Tamsulosin [Flomax] 0.4 mg PO DAILY 09/06/17 07/13/18 Aspirin [Ecotrin] 1 tab PO DAILY 07/13/18 07/13/18 Review of Systems - Physician Review All systems were reviewed & negative as marked: Yes - Review of Systems Constitutional: Fevers. absent: Weight Change Eyes: absent: Vision Changes ENT: absent: Hearing Changes Respiratory: SOB. absent: Cough Cardiovascular: Chest Pain. absent: Palpitations Gastrointestinal: Diarrhea, Vomiting. absent: Abdominal Pain, Stool Changes, Nausea Genitourinary Male: absent: Dysuria, Frequency, Hematuria Musculoskeletal: absent: Arthralgias, Back Pain, Neck Pain Skin: absent: Rash, Pruritis, Skin Lesions, Laceration Neurological: absent: Headache, Dizziness, Focal Weakness Endocrine: absent: Diaphoresis Hemo/Lymphatic: absent: Adenopathy Psychiatric: absent: Anxiety Physical Exam Vital Signs Reviewed: Yes Vital Signs Temp Pulse Resp BP Pulse Ox 07/13/18 20:28 99.8 F H 89 18 154/96 H 96 Temperature: Afebrile Blood Pressure: Hypertensive Pulse: Regular Respiratory Rate: Normal Appearance: Positive for: Well-Appearing, Non-Toxic, Comfortable Pain Distress: None Mental Status: Positive for: Alert and Oriented X 3 Finger Stick Blood Glucose: 48 - Systems Exam Head: Present: Atraumatic, Normocephalic Pupils: Present: PERRL Extroacular Muscles: Present: EOMI Conjunctiva: Present: Normal Ears: Present: Normal, NORMAL TM Mouth: Present: Moist Mucous Membranes Nose (External): Present: Atraumatic Nose (Internal): Present: Normal Inspection Neck: Present: Normal Range of Motion Respiratory/Chest: Present: Good Air Exchange, Other (Bilateral crackles at the bases.). No: Respiratory Distress, Accessory Muscle Use Cardiovascular: Present: Regular Rate and Rhythm, Normal S1, S2. No: Murmurs Abdomen: No: Tenderness, Distention, Peritoneal Signs Back: Present: Normal Inspection. No: CVA Tenderness, Midline Tenderness, Paraspinal Tenderness Upper Extremity: Present: Normal Inspection, Normal ROM, NORMAL PULSES. No: Cyanosis, Edema Lower Extremity: Present: Edema (pitting edema bilaterally), NORMAL PULSES, Neurovascularly Intact. No: CALF TENDERNESS Neurological: Present: GCS=15, CN II-XII Intact, Speech Normal Skin: Present: Warm, Dry, Normal Color. No: Rashes Psychiatric: Present: Alert, Oriented x 3, Normal Insight, Normal Concentration Medical Decision Making ED Course and Treatment: 07/13/18 21:17 Impression: A 72 year old male presents to the emergency department for further evaluation of fever, low blood sugar, vomiting, diarrhea, and mild pain with breathing. Mild crackles at bases on exam. Febrile at home to 104. No chest pain. Mild LE edema. No recent abx. No abdominal pain on exam. Likely PNA vs CHF. Pending imaging and labs. Plan: -- EKG -- CXR -- Labs -- Blood Culture -- Reassess and disposition Prior Visits: Notes and results from previous visits were reviewed. Progress Notes: EKG: Ordered, reviewed, and independently interpreted the EKG. Rate : 93 BPM Rhythm : NSR Interpretation : No STEMI 07/14/18 00:58 trop negative. BNP ~700, lasix given mildly elevated WBC Lactic unremarkable CXR on my read w/ consolidation vs pulm increased vasc.: Given lasix. ABX ordered. Appreciate consult w. Dr. Terry: alba Covering Appreciate consult wVickie Black: to admit to his service Pt in NAD, agreeable to admission - Lab Interpretations I have reviewed the lab results: Yes - EKG Interpretation Interpreted by ED Physician: Yes Type: 12 lead EKG - Scribe Statement The provider has reviewed the documentation as recorded by the Scribe Beckie Light Provider Scribe Attestation: All medical record entries made by the Scribe were at my direction and personally dictated by me. I have reviewed the chart and agree that the record accurately reflects my personal performance of the history, physical exam, medical decision making, and the department course for this patient. I have also personally directed, reviewed, and agree with the discharge instructions and disposition. Disposition/Present on Arrival - Present on Arrival Any Indicators Present on Arrival: No History of DVT/PE: No History of Uncontrolled Diabetes: No Urinary Catheter: No History of Decub. Ulcer: No History Surgical Site Infection Following: None - Disposition Have Diagnosis and Disposition been Completed?: Yes Diagnosis: Elevated brain natriuretic peptide (BNP) level, Pneumonia Disposition Time: 00:58 Condition: GOOD
[2018-07-13 21:26] LABS: BASO # 0.02 K/mm3 (0.0-2.0); BASO % 0.2 % (0.0-3.0); EOS % 0.3 % (1.5-5.0); GRAN # 8.43 (1.4-6.5); GRAN % 71.7 % (50.0-68.0); HEMOGLOBIN 16.5 g/dL (14.0-18.0); LYMPH # 1.3 (1.2-3.4); LYMPH % 11.4 % (22.0-35.0); MEAN CELL VOLUME 84.1 fl (80.0-105.0); MEAN CORPUSCULAR HEMOGLOBIN 28.2 pg (25.0-35.0); MEAN CORPUSCULAR HGB CONC 33.5 g/dl (31.0-37.0); MEAN PLATELET VOLUME 10.4 fl (7.0-11.0); MONO # 1.9 (0.1-0.6); MONO % 16.4 % (1.0-6.0); RBC 5.85 10^6/uL (3.5-6.1); RED CELL DISTRIBUTION WIDTH 14.3 % (11.5-14.5); WHITE BLOOD COUNT 11.8 10^3/uL (4.5-11.0)
[2018-07-13 21:39] LABS: ALB/GLOB RATIO 1.1 (1.1-1.8); CALCIUM 8.7 mg/dL (8.4-10.5)
[2018-07-13 21:43] LABS: VENOUS BLOOD GAS BASE EXCESS 2.2 mmol/L (0.0-2.0); VENOUS BLOOD GAS PO2 83 mm/Hg (30-55); VENOUS BLOOD PH 7.41 (7.32-7.43)
[2018-07-13 21:56] LABS: TROPONIN I 0.11 ng/mL
[2018-07-14] MEDS ORDERED: cefTRIAXone 1 gm 1 GM/100 ML BAG IVPB STA (00:30)
[2018-07-14 01:13] LABS: URINE BILIRUBIN NEGATIVE (NEGATIVE); URINE BLOOD SMALL (NEGATIVE); URINE GLUCOSE (UA) NEGATIVE (NEGATIVE); URINE LEUKOCYTE ESTERASE NEGATIVE Leu/uL (NEGATIVE); URINE PROTEIN 100 mg/dL (<30 mg/dL); URINE UROBILINOGEN 0.2 E.U./dL (<1 E.U./dL)
[2018-07-14] MEDS ORDERED: Potassium Chloride 20 mEq ER Tab PO STA (01:18)
[2018-07-14 01:41] LABS: URINE APPEARANCE CLEAR (CLEAR); URINE COLOR YELLOW (YELLOW)
[2018-07-14 01:43] LABS: URINE EPITHELIAL CELLS 0 - 2 /hpf (0-5); URINE RBC 0 - 2 /hpf (0-2); URINE WBC 0 - 2 /hpf (0-6)
--- NOTE | 2018-07-14 08:45 | RAD ---
Date of service: 07/14/2018 HISTORY: cp COMPARISON: 08/26/2017 TECHNIQUE: Chest PA and lateral FINDINGS: LUNGS: There is linear atelectasis in both lower lobes PLEURA: No significant pleural effusion identified. No pneumothorax apparent. CARDIOVASCULAR: Mild aortic calcification Normal cardiac size. No pulmonary vascular congestion. OSSEOUS STRUCTURES: Sternal wires VISUALIZED UPPER ABDOMEN: Normal. OTHER FINDINGS: None. IMPRESSION: No active disease.
[2018-07-14] MEDS: Digoxin 125 mcg (0.125 mg) Tab PO SCH (09:13)
[2018-07-14] MEDS: Insulin Detemir 100 units/ml Vial (Levemir) SC SCH ×2 (09:16→22:25)
[2018-07-14] MEDS: Magnesium Oxide 400 mg Tab UD PO SCH ×2 (09:16→17:11)
--- NOTE | 2018-07-14 09:27 | CARD ---
APPROVED REPORT Date of service: 07/13/2018 EKG Measurement Heart [id number] SD [id number] <Conclusion> Sinus rhythm with 1st degree AV block Nonspecific intraventricular conduction delay STTW changes c/w ischemia Slight ST elevation V1, St elevatin in V2. Suggest clinical correlation
--- NOTE | 2018-07-14 10:38 | CON ---
DATE: 07/14/2018 CARDIOLOGY CONSULTATION HISTORY: The patient is a 72-year-old male, who presents with several days of orthopnea. PAST MEDICAL HISTORY: The patient's past medical history includes hypertension, diabetes mellitus, history of coronary artery bypass surgery. His last evaluation included a cardiac catheterization, which was performed in 03/2018. The findings on catheterization revealed triple-vessel disease with patent graft x3. He had an ejection fraction of 35-40% consistent with an ischemic dilated cardiomyopathy. The patient received IV Lasix with improvement of his symptoms. He is able to sleep last night without issues. SOCIAL HISTORY: The patient denies smoking. REVIEW OF SYSTEMS: Fourteen-point review of systems is reviewed in detail. No angina. No exertional chest pain. No edema in the lower extremities. He denies changes in his dietary habits. PHYSICAL EXAMINATION: VITAL SIGNS: Blood pressure 126/87, heart rate is in the 60s. NECK: Negative JVD. LUNGS: Without rales. HEART: Heart rate S1, S2. EXTREMITIES: Without edema. LABORATORY DATA: The troponin is 0.11 new compared to 0.08 which is at baseline. Glucose is 84. BUN and creatinine, creatinine is 1.5. Hemoglobin is 16.5. Troponins are at its baseline. ProBNP are mildly elevated. EKG shows nonspecific ST-T changes. IMPRESSION: 1. Acute systolic congestive heart failure. 2. Ischemic dilated cardiomyopathy. 3. History of multivessel coronary artery disease. 4. History of coronary artery bypass surgery. 5. Recent cath into in 03/2018, which revealed patent bypass grafts. 6. Diabetes mellitus. 7. Hypertension. 8. Hypercholesterolemia. PLAN: Given these findings, we will change his Lasix to p.o. Lasix. The patient should go home on 40 of p.o. Lasix at twice a day. Fidel Montgomery MD
--- NOTE | 2018-07-14 11:20 | HP ---
DATE OF EXAM: 07/14/2018 SUBJECTIVE: The patient was admitted to the [facility], telemetry unit last night. He presented with shortness of breath and chest pain. The patient says when he lies down he could not breath. The patient also has had episode of fever yesterday. The patient says he had vomiting and diarrhea for one episode and the patient has no evidence of any bleeding per rectum. He has no past history of GI disorder. The patient has history of bilateral hernia, inguinal. The patient has past history of benign prostatic hyperplasia. The patient has history of coronary artery bypass surgery for severe coronary artery disease, cerebrovascular disease. The patient had mitral valve replacement or repair at the time of that surgery. The patient takes medications for hyperuricemia gout. He is on large dose insulin coverage for diabetes. On examination, the patient is lying down comfortably. He says he had lot of diuresis last night and he is breathing better. PHYSICAL EXAMINATION: GENERAL: The patient is comfortable lying down. VITAL SIGNS: Pulse is 60, blood pressure 130/88, respirations are 18, O2 sat 95% on room air. HEENT: Head is normocephalic. NECK: Thyroid is not enlarged. No elevation of JVP. The carotid pulses are present. HEART: Normal sinus, sinus bradycardia. No murmurs. No rubs. LUNGS: Trachea is central. Breath sounds, vesicular bilateral crepitations are heard. Breath sounds are diminished bilaterally. ABDOMEN: Soft. Liver and spleen not palpable . No organomegaly. He has evidence of inguinal hernia. CENTRAL NERVOUS SYSTEM: Conscious, rational, oriented and comfortable at this time. MEDICATIONS: The patient is on Coreg 6.25 mg twice a day, losartan 100 mg daily, calcium 125 mcg daily, aspirin 81 mg daily, the patient is on Flomax 0.4 mg daily, the patient is on finasteride 5 mg daily, magnesium oxide, Lipitor 40 mg daily and Zyloprim 100 mg twice a day. The patient takes insulin coverage multiple times. The patient is on Levemir and Humalog mixed 75/25 insulin before meals. DIET: Heart healthy diet, diabetic. LABORATORY DATA: His blood work done in the emergency room evaluated, his white count was 11,800, his granulocyte count was 71%. His chemistry; the patient's BNP was only 670 even though the patient clinically . His blood sugar is 84 this morning, it was 117 yesterday and his condition is improving. IMPRESSION AND PLAN: The patient has consulted with Dr. Fidel Montgomery, the outreach clinician evaluate him and will see the patient tomorrow. We will continue current management, monitor him and treat him for his CHF at this time. His medications, currently, the patient is on Coreg, losartan, digoxin, aspirin, Flomax, insulin coverage, Lasix, Lipitor, magnesium oxide, Proscar, and Zyloprim. Santiago Falcon MD
[2018-07-14] MEDS: Insulin Lispro (humaLOG) MIX 75/25(10 ml) SC SCH ×2 (12:14→17:16)
[2018-07-14] MEDS ORDERED: Potassium Chloride 20 mEq ER Tab PO ONE (15:04)
[2018-07-14] MEDS: Magnesium Sulfate 2 gm/50 ml 2 GM/50 ML BAG IVPB SCH ×2 (15:21→17:11)
--- NOTE | 2018-07-14 17:02 | CT ---
Date of service: 07/14/2018 PROCEDURE: CT Chest, Abdomen and Pelvis without intravenous contrast HISTORY: FEVER/CMP/SOB COMPARISON: July 22, 2015. CT abdomen and pelvis TECHNIQUE: Radiation dose: Total exam DLP = 1365.4 mGy-cm. This CT exam was performed using one or more of the following dose reduction techniques: Automated exposure control, adjustment of the mA and/or kV according to patient size, and/or use of iterative reconstruction technique. FINDINGS: CT CHEST WITHOUT CONTRAST: LUNGS: Left lower lobe and lingular scarring. Similar findings identified on the prior CT scan 07/22/2015. MEDIASTINUM: Unremarkable. Normal caliber aorta and pulmonary arterial trunk. Normal size heart. Mitral valve prosthesis identified. LYMPH NODES: Unremarkable. PLEURA: Trace fluid in the major and minor fissures. BONES: Unremarkable. OTHER FINDINGS: None. CT ABDOMEN AND PELVIS: LIVER: Unremarkable. No gross lesion or ductal dilatation. GALLBLADDER AND BILE DUCTS: Cholelithiasis without CT evidence of acute cholecystitis. PANCREAS: Unremarkable. No gross lesion or ductal dilatation. SPLEEN: Mild splenomegaly. ADRENALS: Unremarkable. No mass. KIDNEYS AND URETERS: Unremarkable. No hydronephrosis. No solid mass. Incidental finding(s): Nonobstructing right renal calculi none larger than 4 mm. VASCULATURE: Atherosclerotic calcification and mural plaque present. Findings are seen throughout the aorta Unremarkable. No aortic aneurysm. BOWEL: Diverticulosis without an acute inflammatory component or other associated pathologic process. APPENDIX: Normal appendix. PERITONEUM: Unremarkable. No free fluid. No free air. LYMPH NODES: Unremarkable. No enlarged lymph nodes. BLADDER: Unremarkable. REPRODUCTIVE: Stable enlarged prostate. BONES: No acute fracture. OTHER FINDINGS: None. IMPRESSION: CHEST: No significant or acute findings to account for/ related to the clinical presentation. ABDOMEN AND PELVIS: Cholelithiasis without CT evidence of acute cholecystitis. Nonobstructing right renal calculi. NO ACUTE FINDINGS IN THE ABDOMEN RETROPERITONEUM OR PELVIS.
--- NOTE | 2018-07-14 20:28 | CARD ---
APPROVED REPORT Date of service: 07/14/2018 EXAM: Two-dimensional and M-mode echocardiogram with Doppler and color Doppler. INDICATION Congestive Heart Failure 2D DIMENSIONS Left Atrium (2D)4.8 (1.6-4.0cm)IVSd1.6 (0.7-1.1cm) LVDd5.9 (3.9-5.9cm)PWd1.3 (0.7-1.1cm) LVDs5.1 (2.5-4.0cm)FS (%) 14.1 % LVEF (%)29.5 (>50%) M-Mode DIMENSIONS Aortic Root3.20 (2.2-3.7cm)Aortic Cusp Exc.2.20 (1.5-2.0cm) Aortic Valve AoV Peak Vqdvmuum068.0cm/Juancarlos Peak GR.7mmHg Mitral Valve MV E Lnxfnrug206.0cm/sMV A Byfzqrkr010.0cm/sMV IQU871pn E/A ratio1.3MVA (PHT)1.73cm2 TDI E/Lateral E'0.0E/Medial E'0.0 Tricuspid Valve TR Peak [id number]/sRAP [id number] Peak Gr.28mmHg [id number] LEFT VENTRICLE The Left Ventricle is borderline dilated. There is moderate concentric left ventricular hypertrophy. The systolic function is severely impaired. There is global hypokinesis of the left ventricle. Transmitral Doppler flow pattern is Grade II-pseudonormal filling dynamics. RIGHT VENTRICLE The right ventricle is normal size. There is normal right ventricular wall thickness. Systolic function is mildly to moderately reduced. ATRIA The left atrium is moderately dilated. The right atrium is mildly dilated. AORTIC VALVE The aortic valve is mildly sclerotic. No aortic regurgitation is present. There is no aortic valvular stenosis. MITRAL VALVE Mitral regurgitation is trace. There is moderate mitral valve stenosis. The prosthetic mitral valve is not well visualized due to imaging artifacts from the prosthesis with moderate mitral valve stenosis. TRICUSPID VALVE There is mild pulmonary hypertension. GREAT VESSELS The aortic root is normal in size. <Conclusion> The Left Ventricle is borderline dilated. There is moderate concentric left ventricular hypertrophy. The systolic function is severely impaired. There is global hypokinesis of the left ventricle. The prosthetic mitral valve is not well visualized due to imaging artifacts from the prosthesis with moderate mitral valve stenosis. There is mild pulmonary hypertension.
[2018-07-15 01:51] VITALS: O2SAT 98
[2018-07-15 07:26] LABS: BASO # 0.02 K/mm3 (0.0-2.0); BASO % 0.2 % (0.0-3.0); EOS # 0.3 (0.0-0.7); EOS % 3.5 % (1.5-5.0); GRAN # 5.82 (1.4-6.5); GRAN % 61.2 % (50.0-68.0); HEMOGLOBIN 16.7 g/dL (14.0-18.0); LYMPH # 1.7 (1.2-3.4); LYMPH % 17.6 % (22.0-35.0); MEAN CELL VOLUME 84.1 fl (80.0-105.0); MEAN CORPUSCULAR HEMOGLOBIN 28.2 pg (25.0-35.0); MEAN CORPUSCULAR HGB CONC 33.5 g/dl (31.0-37.0); MEAN PLATELET VOLUME 10.4 fl (7.0-11.0); MONO # 1.7 (0.1-0.6); MONO % 17.5 % (1.0-6.0); RBC 5.92 10^6/uL (3.5-6.1); RED CELL DISTRIBUTION WIDTH 14.5 % (11.5-14.5); WHITE BLOOD COUNT 9.5 10^3/uL (4.5-11.0)
[2018-07-15 07:40] LABS: BILIRUBIN,DIRECT 0.2 mg/dL (0.0-0.4)
[2018-07-15] MEDS: Insulin Lispro (humaLOG) MIX 75/25(10 ml) SC SCH ×2 (07:52→12:51)
[2018-07-15 07:56] LABS: FREE T4 1.25 ng/dL (0.78-2.19); T4 6.7 ug/dL (5.5-11.0)
[2018-07-15] MEDS: Insulin Detemir 100 units/ml Vial (Levemir) SC SCH (10:08)
[2018-07-15] MEDS: Magnesium Oxide 400 mg Tab UD PO SCH (10:17)
[2018-07-15] MEDS: Digoxin 125 mcg (0.125 mg) Tab PO SCH (10:17)
[2018-07-15 10:20] VITALS: PULSE 65
[2018-07-15 12:44] VITALS: BP 133/83; RESP 18; TEMP 97.8
[2018-07-15 15:03] VITALS: PULSE 68
--- NOTE | 2018-07-16 09:11 | DS ---
FINAL PROGRESS NOTE AND DISCHARGE SUMMARY SUBJECTIVE: The patient was seen in room 269, bed 2. The patient is lying comfortably in the bed. The patient denies any chest pain. Denies any shortness of breath. Denies nausea. Denies vomiting. Denies diarrhea. Denies hemoptysis, hematemesis, or melena. Telemetry monitoring shows normal sinus rhythm. PHYSICAL EXAMINATION: VITAL SIGNS: T-max in the last 24 hours 98.4. Telemetry normal sinus rhythm, heart rate 64, 68, and 69, blood pressure 133/83, 137/84, and 129/68, respirations 18, and O2 sat is 95-98%. HEENT: Head examination normocephalic and atraumatic. HEENT examination shows pink conjunctivae. Anicteric sclerae. No oropharyngeal lesion. NECK: No neck rigidity. CHEST: Kyphosis. Positive median sternotomy surgical scar. LUNGS: Shows no audible crackle, rales or wheezing. CARDIOVASCULAR: S1 and S2, regular rhythm. Positive systolic murmur left sternal border, second intercostal space, left second intercostal space. ABDOMEN: Soft. Positive bowel sounds. No palpable hepatosplenomegaly. GENITALIA: Male. RECTAL: Deferred. EXTREMITIES: Shows no pitting edema. No calf tenderness. No Homans' sign. NEUROLOGIC: The patient is alert, awake, and oriented x3, is able to move upper and lower extremity without assistance. Gait examination is not tested. VASCULAR: Palpable pulses. Motor strength is 5/5. Cranial nerves II through XII intact and limited. DIAGNOSTIC DATA: On 07/15/2018; WBC 9.5, hemoglobin and hematocrit 16.7 and 49.8, and platelets 193. Sodium 139, potassium 3.6, chloride 104, CO2 of 29, anion gap 9, BUN 28, creatinine 1.7, GFR 40, glucose 58, hemoglobin A1c 8.1, and magnesium 2.3. Peak troponin 0.12, down to 0.11. BUN 28 and creatinine 1.7. LFTs within normal limit. PSA is 3.7. Vitamin D 25-hydroxy 36. Thyroid panel is within normal limit. Triglyceride 87, cholesterol 146, LDL 64, and HDL 56. Blood cultures negative. CT chest, abdomen, and pelvis reviewed. ECHOCARDIOGRAM: EKG results reviewed and explained to the patient. CAT scan of the chest, abdomen, pelvis results reviewed and explained to the patient. FINAL IMPRESSION, PLAN, AND DISCHARGE DIAGNOSES: 1. Shortness of breath. 2. Fever. 3. Hypoglycemia. 4. Mild congestive heart failure. 5. Hypertension. 6. Transient leukocytosis with granulocytosis (resolved). 7. Hypomagnesemia. 8. Hypokalemia. 9. Underlying chronic kidney disease stage III with mild acute kidney injury. 10. Indeterminate troponin. 11. Chronic kidney disease stage III. 12. Uncontrolled insulin-requiring diabetes mellitus with hyper and hypoglycemia with hemoglobin A1c of 8.1. 13. Elevated prostate-specific antigen of 3.7. 14. Proteinuria and microscopic hematuria. 15. Coronary ischemic changes. 16. Left lower lobe lingular scarring. 17. Mitral valve replacement and prosthesis. 18. Cholelithiasis without cholecystitis. 19. Mild splenomegaly. 20. Right renal nonobstructing nephrolithiasis 4 mm. 21. Aortic atherosclerotic calcification with mural plaque. 22. Diverticulosis without diverticulitis. 23. Prostatomegaly. 24. Bibasilar atelectasis. 25. Coronary artery disease and coronary artery bypass graft. 26. Dilated ischemic cardiomyopathy with left ventricular ejection fraction of 30%. 27. Concentric left ventricular hypertrophy with dilated left ventricle and severely impaired left ventricular systolic function with left ventricular ejection fraction of 30% with global left ventricular hypokinesis. 28. Grade 2 pseudonormal filling dynamics. 29. Moderately reduced right ventricular systolic function. 30. Moderately dilated left atrium. 31. Mildly sclerotic aortic valve. 32. Trace mitral regurgitation. 33. Moderate mitral valve stenosis with prosthetic mitral valve. 34. Mild pulmonary hypertension with right ventricular systolic pressure of 38 mmHg. 35. Acute systolic congestive heart failure with underlying dilated ischemic cardiomyopathy. 36. History of hypovitaminosis D, history of hyperlipidemia, history of hyperuricemia, and history of prostatic hypertrophy. At this time, the patient has been cleared by Cardiology for discharge since the patient recently had cardiac catheterization done, which showed patent bypass graft. The patient was cleared for discharge. The patient is to be discharged home with discharge follow up with Dr. Terry within 1 week and discharge follow up with Dr. Montgomery within 1-2 weeks. Resume all home medications. Copy of the diet to the patient upon discharge. Discharge medications will be aspirin, Ecotrin 81 mg daily, allopurinol 100 mg twice a day, Lipitor 40 mg daily, Coreg 6.25 mg twice a day, vitamin D 50,000 units weekly, digoxin 0.125 daily, Proscar 5 mg daily, and Lasix 40 mg twice a day. The patient's Humalog Mix 75/25 will be staying at 25 units with breakfast, lunch and dinner, but the patient's Lantus insulin will be decreased to 50 units once daily, Cozaar 100 mg daily, magnesium oxide 400 mg twice a day, and Flomax 0.4 mg daily. During this hospitalization, the patient was extensively explained about the details of his medical condition, diagnosis, treatment plan, management plan was discussed and explained to the patient at length and all questions concerned answered, which she acknowledged and understand. The patient's Lantus insulin was decreased from 60 units once a day to 50 units once a day. Dictated and electronically signed, not read. Ortiz Terry MD
== END 2018-07-15 17:53 | disposition home or self-care (01) | DRG 291 ==
LOC: ED 20:11 → ERH 07-14 00:37 → 2RNO 07-14 01:50
PROVIDERS: ADMIT Internal Medicine; ATTEND Internal Medicine
DX: I13.0 Hypertensive heart and chronic kidney disease with heart failure and stage 1 through stage 4 chronic kidney disease, or unspecified chronic kidney disease (principal); I50.21 Acute systolic (congestive) heart failure; N17.9 Acute kidney failure, unspecified; I25.10 Atherosclerotic heart disease of native coronary artery without angina pectoris; I42.0 Dilated cardiomyopathy; I25.5 Ischemic cardiomyopathy; N18.3 Chronic kidney disease, stage 3 (moderate); I27.20 Pulmonary hypertension, unspecified; N40.0 Benign prostatic hyperplasia without lower urinary tract symptoms; M10.9 Gout, unspecified; K80.20 Calculus of gallbladder without cholecystitis without obstruction; E11.22 Type 2 diabetes mellitus with diabetic chronic kidney disease; E11.649 Type 2 diabetes mellitus with hypoglycemia without coma; E78.00 Pure hypercholesterolemia, unspecified; E83.42 Hypomagnesemia; E87.6 Hypokalemia; N20.0 Calculus of kidney; Z79.4 Long term (current) use of insulin; Z86.73 Personal history of transient ischemic attack (TIA), and cerebral infarction without residual deficits; Z95.2 Presence of prosthetic heart valve; Z95.1 Presence of aortocoronary bypass graft